=== PATIENT | female | born 1960 | race Caucasian/White ===

== ENCOUNTER → 2016-08-06 12:49 | Outpatient (CLI) | payer MEDICAID ==
[2015-03-31 10:29] VITALS: BMI 25.8
[~2016-08-06 12:49] MED LIST: AMITRIPTYLINE H50 MG PO; AUGMENTIN 875-11 TAB PO; CELEXA20 MG PO; CELEXA40 MG; FLAGYL500 MG PO; KEFLEX500 MG PO; LIBRIUM25 MG PO; NEURONTIN 300300 MG; NEURONTIN 300300 MG PO; PREDNISONE20 MG PO; VISTARIL25 MG; ZOCOR20 MG PO
== END | disposition home or self-care (01) ==
LOC: D.CT 12:49
DX: R16.0 Hepatomegaly, not elsewhere classified (principal); R93.5 Abnormal findings on diagnostic imaging of other abdominal regions, including retroperitoneum

== ENCOUNTER 2016-08-08 18:36 | Inpatient (IN) | payer MEDICAID ==
[~2016-08-08] VITALS: Ht 172.7 cm; Wt 102.7 kg
[~2016-08-08 18:36] MED LIST changes: -CELEXA40 MG; -FLAGYL500 MG PO; -LIBRIUM25 MG PO; -NEURONTIN 300300 MG; -VISTARIL25 MG
[2016-08-08 19:26] LABS: HEMATOCRIT 44.5 % (36.0-48.0); HEMOGLOBIN 15.5 g/dL (12-16); MCH 33.4 pg (26.0-34.0); MCHC 34.8 g/dL (31.0-37.0); MCV 95.9 fL (80.0-100.0); RBC 4.64 10x6/uL (4.00-5.40); RDW 15.6 % (11.5-14.5); WBC 28.7 10x3/uL (4.8-10.8)
[2016-08-08 19:27] LABS: MEAN PLATELET VOLUME 12.4 fL (7.4-10.4); PLATELET COUNT 207 10x3/uL (130-400)
[2016-08-08 19:39] LABS: ALBUMIN 2.5 g/dL (3.4-5.0); ANION GAP 26.2 mmol/L (8-16); BILIRUBIN - TOTAL 15.43 mg/dL (0.2-1.3); CALCIUM 9.4 mg/dL (8.5-10.1); CARBON DIOXIDE 21.4 mmol/L (21.0-32.0); CREATININE - SERUM 1.5 mg/dL (0.6-1.3); POTASSIUM - SERUM 5.6 mmol/L (3.5-5.1); PROTEIN - SERUM 6.3 g/dL (6.4-8.2)
[2016-08-08 19:53] LABS: BILIRUBIN - DIRECT 13.33 mg/dL (0.00-0.30)
[2016-08-08 19:55] LABS: EOSINOPHILS 2 % (0-7); LYMPHOCYTES 14 % (15-50); MONOCYTES 6 % (2-11); NEUTROPHILS 78 % (40-80); PLATELET ESTIMATE NORMAL
[2016-08-08 20:34] LABS: UDS - AMPHET NEGATIVE QUAL (NEGATIVE); UDS - BARB NEGATIVE QUAL (NEGATIVE); UDS - BENZO POSITIVE QUAL (NEGATIVE); UDS - COCAINE NEGATIVE QUAL (NEGATIVE); UDS - METH NEGATIVE QUAL (NEGATIVE); UDS - OPIATE NEGATIVE QUAL (NEGATIVE); UDS - PCP NEGATIVE QUAL (NEGATIVE); UDS - THC NEGATIVE QUAL (NEGATIVE)
[2016-08-08 20:35] LABS: APPEARANCE CLEAR (CLEAR); BILIRUBIN NEGATIVE (NEGATIVE); COLOR YELLOW (YELLOW); GLUCOSE NEGATIVE (NEGATIVE); KETONE NEGATIVE (NEGATIVE); LEUKOCYTE ESTERASE NEGATIVE (NEGATIVE); NITRITE NEGATIVE (NEGATIVE); PROTEIN NEGATIVE (NEGATIVE); UROBILINOGEN NORMAL (NORMAL)
[2016-08-09] VITALS (37 sets, daily range): BP systolic 71–142; BP diastolic 24–120; BMI 24.3
--- NOTE | 2016-08-09 08:47 | NUR ---
LETHARGIC. UNABLE TO COMMUNICATE WITH ME. NO ONE AVAILABLE TO ANSWER QUESTIONS. ICU ASSESSMENT REFLECTS THIS. ON RA. SATTING 97%. RR 24-28 LABORED BUT EVEN. RIGHT AC PIV. NO S/S OF INFILTRATION. BANANA BAG INFUSING AT 125 CC PER HOUR. LUNGS CTA BUT DIMINISHED. SEE FLOW SHEET. ABD SOFT. BS + X4 QUADS. ROGERS. FOLLOWS COMMANDS BUT IS CONFUSED. SEE FLOW SHEET FOR ADDITONAL ASSESSMENT.
--- NOTE | 2016-08-09 08:57 | NUR ---
ASSESSED IN ER FOR ICU. UNABLE TO ASSESS. VERY LETHARGIC. WILL NOT ANSWER QUESTIONS.
--- NOTE | 2016-08-09 08:57 | NUR ---
ASSESSMENT COMPLETED. REPORTED BACK TO TONEY CONLEY CHARGE NURSE AND HE ASSUMED CARE.
[2016-08-09 09:25] LABS: INR 2.72 (0.85-1.17); PROTIME 29.1 SECONDS (11.6-15.0)
[2016-08-09 09:37] LABS: % SATURATION 9 % (15-55); BASOPHILS 0.1 % (0.0-2.0); EOSINOPHILS 0 % (0-7); HEMATOCRIT 36.2 % (36.0-48.0); HEMOGLOBIN 12.3 g/dL (12-16); IMMATURE GRANULOCYTES 1.2 % (0-5); IRON 20 ug/dl (35-150); LYMPHOCYTES 8.3 % (15-50); MCV 97.1 fL (80.0-100.0); MEAN PLATELET VOLUME 11.8 fL (7.4-10.4); MONOCYTES 8.2 % (2-11); NEUTROPHILS 82.2 % (40-80); PLATELET COUNT 258 10x3/uL (130-400); RBC 3.73 10x6/uL (4.00-5.40); TOTAL IRON BIND CAPACITY 206 ug/dl (260-445); UNSAT IRON BIND CAPACITY 186 ug/dl (150-375); WBC 29.1 10x3/uL (4.8-10.8)
[2016-08-09 09:39] LABS: ALBUMIN 1.9 g/dL (3.4-5.0); ANION GAP 25.6 mmol/L (8-16); BILIRUBIN - TOTAL 11.9 mg/dL (0.2-1.3); C-REACTIVE PROTEIN 3.2 mg/dL (0.0-0.9); CALCIUM 8.3 mg/dL (8.5-10.1); CARBON DIOXIDE 18.4 mmol/L (21.0-32.0); CREATININE - SERUM 1.5 mg/dL (0.6-1.3); PROTEIN - SERUM 4.8 g/dL (6.4-8.2); TROPONIN-I 0.033 ng/mL (0.000-0.060)
--- NOTE | 2016-08-09 15:12 | NUR ---
REC'D PT - HYPOTESIVED - PAGEIleana ALEXANDER - STARTED LEVOFED TO TITRATE PER POLICY - USING 24 GA RIGHT HAND PIV FOR ACCESS. CPOC
--- NOTE | 2016-08-09 15:19 | NUR ---
PAGED DR. REYES HYPOTENSIVE
--- NOTE | 2016-08-09 15:49 | NUR ---
Patient Name: NISHANT GOOD Admission Status: ER Accout number: [id number] Admission Date: 08-08-2016 : 1960 Admission Diagnosis: Jaundice, Sepsis Attending: ERIC Current LOS: 1 Anticipated DC Date: 08-12-2016 Planned Disposition: Home Primary Insurance: MEDICAID [place] Discharge Planning Comments: Cm met with patient and spouse to complete initial discharge planning assessment. Patient not responding so spouse gave consent to complete assessment. Patient lives at home with spouse and has been independent in her care up until now. HE denied use of community resources or DME equipment. Unsure of dc plan at this time. Will depend upon on patient progress at time of discharge. She may require rehab. CM will continue to follow and assist with dc plan/needs. Health Counselor: Paige Dooley RN, [facility] [phone] Is the patient Alert and Oriented? No * How many steps to enter\exit or inside your home? 10 * PCP Dr. Rodriguez * Pharmacy [facility] * Preadmission Environment Home with Family * ADLs Independent * Equipment None * List name and contact numbers for known caregivers / representatives who currently or will assist patient after discharge: Russell - Spouse - [phone] * Community resources currently utilized None * Additional services required to return to the preadmission environment? Yes * Can the patient safely return to the preadmission environment? Yes * Has this patient been hospitalized within the prior 30 days at any hospital? No
--- NOTE | 2016-08-09 16:01 | NUR ---
PAGED DR. LANZA - INFOMRED OF NG TUBE AT INTERMINTTENT SUCTION - OUTPUT ~400 ML OF BLACK TARRY LIQUID - MD WILL COME TO UNIT TO ASSESS. J
[2016-08-09] MEDS ORDERED: NEURONTIN 300300 MG (16:09)
[2016-08-09] MEDS ORDERED: FLAGYL500 MG PO (16:10)
[2016-08-09] MEDS ORDERED: VISTARIL25 MG (16:11)
[2016-08-09] MEDS ORDERED: CELEXA40 MG (16:12)
[2016-08-09] MEDS ORDERED: LIBRIUM25 MG PO (16:13)
--- NOTE | 2016-08-09 16:49 | NUR ---
PAGED DR. MATHUR TO INFORM OF NEED TO ADJUST CENTRAL LINE PER XRAY
--- NOTE | 2016-08-09 17:07 | NUR ---
PAGED DR. MATHUR - RTN CALL - INFORMED OF NEED TO PULL BACK CENTRAL LINE - MD ASKED FOR A 20SILK STAIGHT NEEDLE AND HE WILL COME TO UNIT TO ADJUST CENTERAL LINE. PAGED TRAVEL ADMINISTRATOR - TO ASK TO OBTAIN FROM ER - AWAITING CALL BACK
--- NOTE | 2016-08-09 17:13 | NUR ---
ADVANCED NG TUBE 5CM PER NURSING MESSAGE - DAX ORDERED
--- NOTE | 2016-08-09 18:00 | NUR ---
DR. RODRIGUEZ ORADERED BANANA BAG TO RUN AT 75ML/HOUR, D10 BICARB AT 75ML. PT INCREASED HYPOTENIVE STATE - RT AT BEDSIDE TO ASSIST PT DECREASED RESPRIATIONS - BAGGING PT - DR. KEITA AVAILABLE INTUBATEDD TO PREVENT RESPIRATORY FAILURE CRASH CART AT BEDSIDE - MONTIOR TO CARDIAC PACER PADS 1829 - PT CONINTUES HYPOTESIVE AND IS MAXED ON BOTH VASOPRESSIN AND LEVOFED [address] REYES - ORDERED NEOEPHRINE TO TITRATE - ABG IN ONE HOUR AND TO CALL HIM WITH LAB RESULTS. 1929 REPORT GIVEN TO ONCOMING RN 1899 XRAY ORDERD FOR OET PLACEMENT - ASKED X-RAY TECH TO ASK RADILOGIST TO VERIFY CMs TO WITHDRAW CENTRAL LINE - AWAITING RESULTS.
--- NOTE | 2016-08-09 19:00 | NUR ---
1900: Pt SBP variable 30-80 with continous BP monitorring. Pt remains on Levophed at 30 mcg/kg/min and Vasopressin 0.04 units/hr. Neosynephrine gtt started at this time at 20 mcg/min. Pt remains with D10W, D5W with NAHCO3-, Diprivan is off (BP related). CVP monitoring established at this time and transduced to CM via distal CVL line with measurement 9-10 with proper wf. FFP started with NS and blood tubing as per hosptial policy. Pt remains on Vent with RR 26x with SPO2 99%.
[2016-08-09 19:22] LABS: BASOPHILS 0.3 % (0.0-2.0); EOSINOPHILS 0.1 % (0-7); HEMATOCRIT 32.1 % (36.0-48.0); HEMOGLOBIN 10.3 g/dL (12-16); IMMATURE GRANULOCYTES 3.1 % (0-5); LYMPHOCYTES 10.4 % (15-50); MCH 32.7 pg (26.0-34.0); MCHC 32.1 g/dL (31.0-37.0); MCV 101.9 fL (80.0-100.0); MEAN PLATELET VOLUME 12.8 fL (7.4-10.4); MONOCYTES 9.3 % (2-11); NEUTROPHILS 76.8 % (40-80); PLATELET COUNT 200 10x3/uL (130-400); RBC 3.15 10x6/uL (4.00-5.40); RDW 16.4 % (11.5-14.5); WBC 36.8 10x3/uL (4.8-10.8)
[2016-08-09 19:45] LABS: ALBUMIN 1.6 g/dL (3.4-5.0); BILIRUBIN - TOTAL 12.06 mg/dL (0.2-1.3); CALCIUM 8.6 mg/dL (8.5-10.1); PROTEIN - SERUM 3.9 g/dL (6.4-8.2)
[2016-08-09 19:54] LABS: ANION GAP 34.1 mmol/L (8-16); CARBON DIOXIDE 8.4 mmol/L (21.0-32.0); POTASSIUM - SERUM 6.5 mmol/L (3.5-5.1)
--- NOTE | 2016-08-09 20:00 | NUR ---
2000: Pt NGT position confirmed with 30 cc air bolus and auscultation. Returned to LIS with dark maroon liquid contents observed. Kaexylate (previous order/enema) admin rectally at this time via rectal tube. Clamped for 30 minutes and returned to gravity flow. Immediate return of approx 500cc of dark/black liquid stool returned. Rectal tube remains and placed to gravity drainage.
--- NOTE | 2016-08-09 21:00 | NUR ---
2100: Update called to Dr. Morales and new orders rec'd and placed in [facility].
--- NOTE | 2016-08-09 22:00 | NUR ---
2200: Dr. Carrillo here at bedside. CVL adjusted and sutured by . Replaced CVL Dressing under sterile technique and Biopatch applied.
--- NOTE | 2016-08-09 23:00 | NUR ---
2300: Update called to Dr. Morales at this time. New orders rec'd and placed in [facility] at this time.
[2016-08-10] VITALS (90 sets, daily range): BP systolic 89–138; BP diastolic 46–96
--- NOTE | 2016-08-10 | NUR ---
0000: Serum lab values called to Dr. Morales and new orders rec'd and placed in [facility].
--- NOTE | 2016-08-10 | NUR ---
0000: Continue to titrate multiple gtts as per MD orders to keep SBP >90 and MAP >65. Pt remains on Vent with OC93-45b with SPO2 99%. Pt UOP <30 cc/hr. MD notified and aware. Albumin given as per orders. Richter patency confirmed and remains draining to gravity drain with kinks or blockages detected.
[2016-08-10 00:10] LABS: HEMOGLOBIN 8.4 g/dL (12-16)
[2016-08-10 00:18] LABS: HEMATOCRIT 25.5 % (36.0-48.0)
--- NOTE | 2016-08-10 02:00 | NUR ---
0200: 4 FFP and 2 PRBC (7p-7a) admin via BT and NS through CVL completed at this time.
--- NOTE | 2016-08-10 03:00 | NUR ---
0300: Continue to titrate Levophed gtt to keep SBP 90. PRBC continue to infuse with BT and NS.
--- NOTE | 2016-08-10 05:00 | NUR ---
0500: Levophed gtt off at this time. Davonte remains off. Pt SBP 120's and HR 90-100bpm. Vasopressin gtt remains on at this time.
[2016-08-10 05:08] LABS: BASOPHILS 0.4 % (0.0-2.0); EOSINOPHILS 0 % (0-7); HEMATOCRIT 26.6 % (36.0-48.0); HEMOGLOBIN 8.9 g/dL (12-16); IMMATURE GRANULOCYTES 1.6 % (0-5); LYMPHOCYTES 16.5 % (15-50); MCH 32.2 pg (26.0-34.0); MCHC 33.5 g/dL (31.0-37.0); MCV 96.4 fL (80.0-100.0); MEAN PLATELET VOLUME 12.7 fL (7.4-10.4); MONOCYTES 6.9 % (2-11); NEUTROPHILS 74.6 % (40-80); PLATELET COUNT 138 10x3/uL (130-400); RBC 2.76 10x6/uL (4.00-5.40); RDW 15.1 % (11.5-14.5); WBC 25.2 10x3/uL (4.8-10.8)
[2016-08-10 05:35] LABS: BILIRUBIN - TOTAL 12.32 mg/dL (0.2-1.3); CALCIUM 7.9 mg/dL (8.5-10.1); CREATININE - SERUM 2.3 mg/dL (0.6-1.3); MAGNESIUM - SERUM 3.3 mg/dL (1.8-2.4); PHOSPHOROUS 5.4 mg/dL (2.5-4.9); THYROID STIMULATING HORMONE 0.47 uIU/mL (0.36-3.74)
[2016-08-10 05:36] LABS: APTT 57.2 SECONDS (22.8-39.4); INR 2.68 (0.85-1.17); PROTIME 28.7 SECONDS (11.6-15.0)
[2016-08-10 05:38] LABS: ALBUMIN 2.8 g/dL (3.4-5.0); ANION GAP 27.5 mmol/L (8-16); CARBON DIOXIDE 19.9 mmol/L (21.0-32.0); POTASSIUM - SERUM 4.4 mmol/L (3.5-5.1)
[2016-08-10 06:28] LABS: APPEARANCE TURBID (CLEAR); COLOR YELLOW (YELLOW)
[2016-08-10 06:29] LABS: BILIRUBIN NEGATIVE (NEGATIVE); GLUCOSE NEGATIVE (NEGATIVE); KETONE NEGATIVE (NEGATIVE); LEUKOCYTE ESTERASE NEGATIVE (NEGATIVE); NITRITE NEGATIVE (NEGATIVE); PROTEIN NEGATIVE (NEGATIVE); SPECIFIC GRAVITY 1.015 (1.005-1.020); UROBILINOGEN NORMAL (NORMAL)
[2016-08-10 06:30] LABS: AMORPHOUS SEDIMENT >1+ /lpf (NONE SEEN); BACTERIA MODERATE /hpf (NONE SEEN); EPITHELIAL CELLS 0-5 /hpf (0-5); GRANULAR CAST 0-5 /lpf (NONE SEEN); MUCUS <1+ /lpf (NONE SEEN); RED CELLS - URINE OCC /hpf (0-5); WHITE CELLS - URINE OCC /hpf (0-5)
--- NOTE | 2016-08-10 07:00 | NUR ---
0700: Pt remains on vent with RR20x with SPO2 97%. Pt remains with SBP 120's with Levophed and Davonte off. Vasopressin remains unchanged. Pt continues with black liquid drainage from NGT and Rectal tube. Richter remains patent with UOP <30 cc/hr approx 10cc/hr of cloudy yellow UOP. Pt remains SR on CM 90's at this time.
--- NOTE | 2016-08-10 07:51 | NUR ---
[id number]
[2016-08-10 10:26] LABS: HEMATOCRIT 26.2 % (36.0-48.0); HEMOGLOBIN 8.9 g/dL (12-16)
[2016-08-10 14:06] LABS: ERYTHROCYTE SEDIMENTATION RATE 12 mm/hr (0-30)
[2016-08-10 14:20] LABS: CREATININE - URINE 49.9 mg/dL (30-125); PRO/CRE RATIO URINE 2.2 mg/g; PROTEIN - URINE 111.2 mg/dL (0.0-11.9)
[2016-08-10 14:25] LABS: APPEARANCE HAZY (CLEAR); COLOR DK YELLOW (YELLOW); LEUKOCYTE ESTERASE NEGATIVE (NEGATIVE); NITRITE NEGATIVE (NEGATIVE); PROTEIN 1+ mg/dL (NEGATIVE); SPECIFIC GRAVITY 1.015 (1.005-1.020)
[2016-08-10 14:26] LABS: AMORPHOUS SEDIMENT >1+ /lpf (NONE SEEN); BACTERIA MODERATE /hpf (NONE SEEN); BILIRUBIN NEGATIVE (NEGATIVE); EPITHELIAL CELLS 0-5 /hpf (0-5); GLUCOSE 50 mg/dL (NEGATIVE); GRANULAR CAST 0-5 /lpf (NONE SEEN); KETONE NEGATIVE (NEGATIVE); MUCUS <1+ /lpf (NONE SEEN); RED CELLS - URINE OCC /hpf (0-5); UROBILINOGEN NORMAL (NORMAL); WHITE CELLS - URINE RARE /hpf (0-5)
[2016-08-10 17:31] LABS: HEMATOCRIT 24.2 % (36.0-48.0); HEMOGLOBIN 8.2 g/dL (12-16)
--- NOTE | 2016-08-10 21:00 | NUR ---
REPORT RECEIVED AND CARE ASSUMED. PT RESPIRATORY STATUS BEING MAINTAINED PER VENTILATOR. PT IS IN CONTACT ISOLATION, PRECAUTIONS OBSERVED. IVF PER PUMPS AND ARE DATED AND LABELED APPROPRIATELY AND ARE CURRENT. PT BEING MONITORED PER STANDARD ICU PROTOCOL WITH ALL ALARMS SET. IVF LISTED ON FLOWSHEET. TITRATING DIPROVAN AND VASSOPRESSIN ORDERED. ALL CHANGES RECORDED ON FLOWSHEET. PT IS TOTAL CARE WITH PILLOWS USED TO PROVIDE SUPPORT AND RELIEVE PRESSURE. HEELS ARE BRIDGED. NOTE A SCAB/SORE TO RIGHT FOREARM-OLD IN APPEARANCE. PT WITH BILATERAL WRIST RESTRAINTS ON TO PREVENT PT FROM PULLING ETT OR OTHER LINES. NOTE PIV TO LEFT AC AND RIGHT HAND. EACH FLUSHES WELL AND ARE WNL. ALL IVF ARE INFUSING PER RIGHT SC CVL VIA MANIFOLD. CVP PER DISTAL PORT, LEVELED AND ZEROED AND READING AT 16. THIS IS WHAT WAS REPORTED AND IS NOT A CHANGE IN PT'S STATUS PER REPORTING OFF RN.
--- NOTE | 2016-08-10 21:42 | NUR ---
0710-RECIEVED PER FLOW SHEET--NOTED MARKED JAUNDICE TO SCLERA-NON RESPONSIVE TO TACTILE STIMULI-DIPRIVAN DECREASED TO 10MCG/KG/MIN BLOOD BANK NOTIFIED OF FFP ORDER -DR REYES AT [facility]-ORDERS RECIEVED AND NOTED -RENAL NURSE PRACTITIONER IN UNIT AND NOTIFIED OF CONSULT 0830-DR TOWNSEND AT BEDSIDE STATUS REPORT GIVEN-ORDERS RECIEVED 0900- AT BEDSIDE-QUESTIONS ANSWERED TO BEST OF ABILITY- 1030-STOOL CDT SENT ORDERED 1230-DR REYES NOTIFIED OF CDT POSITIVE RESULT-PT PLACED IN [id number] RECIEVED AND NOTED 1530- AT [facility]-INFORMED OF CDT FINDING IN PEGAL-[id number] COURSE OF TREATMENT-STRICT CONTACT ISOLATION-INFORMED OF CLEANING HOME -LAUNDERING AND LYSOL SPRAY ALL SOFT SURFACES IN HOME AND CAR- APPEARS TO UNDERSSTAND 1630-NO CHANGES-VASOPRESSIN TITRATED FOR SYS >90 1730-NO CHANGES NOTED 1999- SR ON MONITOR NOTED DOLORES INCREASE TO 2-ORAL CARE DONE
--- NOTE | 2016-08-10 22:00 | NUR ---
NOTE PT'S RINGS ARE VERY TIGHT DUE TO GENERALIZED EDEMA. LUBIRCANT APPLIED AND WITH SOME DIFFICULTY WERE REMOVED. 3 RINGS PLACED IN SMALL BAG WITH PT'S NAME AND ADMISSIONS CALLED TO PLACE IN [facility].
[2016-08-10 22:55] LABS: HEMATOCRIT 23.8 % (36.0-48.0); HEMOGLOBIN 8.1 g/dL (12-16)
--- NOTE | 2016-08-10 23:00 | NUR ---
SHIFT REASSESSMENT COMPLETED SEE FLOWSHEET. CONTINUE TO CHECK FSBS Q1H PER ORDER. SEE FLOWSHEET FOR DOCUMENTATION.
[2016-08-11] VITALS (78 sets, daily range): BP systolic 73–97; BP diastolic 36–57; Ht 172.7 cm; Wt 102.7 kg
--- NOTE | 2016-08-11 01:00 | NUR ---
PT CONTINUES ON VASSOPRESSIN WITH NO CHANGES. SBP JUST ABOVE 90. SEE FLOWSHEET FOR VS. CONTINUE TO TURN AND REPOSITION Q2H WITH ALL ADL'S PROVIDED FOR
--- NOTE | 2016-08-11 03:00 | NUR ---
SHIFT REASSESSMENT COMPLETED. SEE FLOWSHEET. NO SIGNIFICANT CHANGES
--- NOTE | 2016-08-11 03:30 | NUR ---
RADIOLOGY AT BEDSIDE FOR PCXR
--- NOTE | 2016-08-11 05:00 | NUR ---
LABS DRAWN FROM DISTAL PORT OF CVL AND SENT FOR ANALYSIS. PT OPENING EYES BUT NO FOLLOWING COMMANDS. TOLERATING VENT WELL
[2016-08-11 05:33] LABS: BASOPHILS 0.1 % (0.0-2.0); EOSINOPHILS 0 % (0-7); HEMATOCRIT 24.2 % (36.0-48.0); HEMOGLOBIN 8.2 g/dL (12-16); IMMATURE GRANULOCYTES 1.2 % (0-5); LYMPHOCYTES 14.7 % (15-50); MCH 32.2 pg (26.0-34.0); MCHC 33.9 g/dL (31.0-37.0); MCV 94.9 fL (80.0-100.0); MEAN PLATELET VOLUME 13.1 fL (7.4-10.4); MONOCYTES 7.7 % (2-11); NEUTROPHILS 76.3 % (40-80); PLATELET COUNT 95 10x3/uL (130-400); RBC 2.55 10x6/uL (4.00-5.40); RDW 16.8 % (11.5-14.5); WBC 23.9 10x3/uL (4.8-10.8)
[2016-08-11 05:45] LABS: INR 2.15 (0.85-1.17)
[2016-08-11 06:09] LABS: ALBUMIN 2.5 g/dL (3.4-5.0); ALKALINE PHOSPHATASE 242 U/L (46-116); ALT (SGPT) 727 U/L (10-68); BILIRUBIN - TOTAL 14.02 mg/dL (0.2-1.3); C-REACTIVE PROTEIN 5.8 mg/dL (0.0-0.9); CALC OSMOLALITY 331 mosm/kg (275-300); CALCIUM 7.7 mg/dL (8.5-10.1); CARBON DIOXIDE 22.8 mmol/L (21.0-32.0); CHLORIDE - SERUM 107 mmol/L (98-107); CREATINE KINASE 598 UL (21-215); GLUCOSE 117 mg/dL (74-106); PHOSPHOROUS 5.1 mg/dL (2.5-4.9); PRO BNP 11325 pg/mL (0-125); PROTEIN - SERUM 4.8 g/dL (6.4-8.2); SODIUM 150 mmol/L (136-145); UREA NITROGEN 104 mg/dL (7-18)
[2016-08-11 06:14] LABS: AMYLASE - SERUM 287 U/L (25-115); CREATININE - SERUM 2.9 mg/dL (0.6-1.3); LIPASE 3116 U/L (73-393); MAGNESIUM - SERUM 3.5 mg/dL (1.8-2.4); eGFR NON AFRICAN AMERICAN 18 mL/min (90-120)
[2016-08-11 06:16] LABS: CKMB 1.4 U/L (0.0-3.6)
--- NOTE | 2016-08-11 08:00 | NUR ---
0800- REC'D PT SEDATED AND VENTILATED. PT ASSESSMENT COMPLETE. SEE FLOWSHEET. WILL CONTINUE TO MONITOR. 1030- PT FSBS Q1 DC'D PER VERBAL ORDER FROM DR FERREIRA. 1230- PT SPOUSE AT BEDSIDE. UPDATE PROVIDED AND QUESTIONS ANSWERED. 1400- REPORT GIVEN TO CECILIO JACK RN.
--- NOTE | 2016-08-11 14:09 | NUR ---
1400 CARE ASSUMED OF PT AT THIS TIME PT REMAINS [id number] ON VENTIL;ATOR WITH VASOPRESSIN INFUSING FOR BP... THERE IS A UNIT OF PRBC INFUSING..RECTAL BAG IN PLACE WITH LIQUID STOOL .. SOFT WRIST RESTRAINTS ARE ON 1410 DR BERNAL CALLED AND ORDERS RECIEVED FOR BP MANAGEMENT..
--- NOTE | 2016-08-11 14:41 | NUR ---
1430 BS 123. 1440 ECHO CARDIOGRAM IN PROGRESS AT BEDSIDE..
--- NOTE | 2016-08-11 17:35 | NUR ---
1500 WITHOUT VISITORSD.. 1600 COMPLETE BATH AND LINEN CHANGE DONE.. AIR OVERLAY MATTRESS ADDED TO THE BED PER ORDER WOUND CARE.. 1700 I AND O COMPLETE.. MEDS GIVEN AND LEVOPHED DRIP INITIATED PER ORDER AND VASOPRESSIN DRIP DCd.. NS HUNG AT 125/HR AND NS BOLUS INFUSING..
--- NOTE | 2016-08-11 19:15 | NUR ---
REPORT RECEIVED AND CARE ASSUMED. INITIAL SHIFT ASSESSMENT STARTED. PT BEING MONITORED PER STANDARD ICU MONITORING WITH ALL ALARMS SET AND VERIFIED. NOTE B/P IS WELL BELOW PARIMETERS. TITRATING LEVOPHED AT INCREASES OF 1MCG Q5MIN UNTIL CORRECTED. STARTING AT THE INFUSING 5MCG/KG/MIN. PT BEING SUPPORTED VIA VENTILATOR AND DOES REQUIRE TOTAL CARE. ALL LINES AND IVF CHECKED FOR CURRENT DATES AND LABELS AND ARE APPROPRIATE.
--- NOTE | 2016-08-11 21:00 | NUR ---
NO VISITORS AT THIS TIME. CURRENTLY AT 19 MCG/KG/MIN OF LEVOPHED
--- NOTE | 2016-08-11 23:00 | NUR ---
SHIFT REASSESSMENT COMPLETED. SEE FLOWSHEET. CONTINUE TO TITRATE UP ON THE LEVOPHED. NOW AT 23MCG. SB/P IS NOW JUST ABOVE 90'S. WILL CONTINUE TO MAKE ADJUSTMENTS NEEDED.
[2016-08-12] VITALS (94 sets, daily range): BP systolic 77–103; BP diastolic 42–59
--- NOTE | 2016-08-12 01:15 | NUR ---
RECTAL TUBE LEAKING AFTER ADMINISTRATION OF LACTULOSE ENEMA. PT CLEANED AND PARTIAL LINEN CHANGE DONE. NOTICE THE PERIANAL AREA RED AND IRRITATED IN APPEARANCE. CLEANED GENTLY AND BUTT PASTE APPLIED. PT REMAINS ON 23MCG OF LEVOPHED AND VSS ON THIS DOSE FOR THE LAST 2 HOURS.
--- NOTE | 2016-08-12 03:00 | NUR ---
HAVE NEEDED TO TITRATE UP ON THE LEVOPHED 1MCG/MIN Q 5 MIN TO ATTAIN ADEQUATE SBP. NOW AT 27MCG/KG/MIN, DECREASING DIPROVAN TO 5MCG/KG/MIN. SHIFT REASSESSEMENT COMPLETED AT THIS TIME. NO OTHER SIGNIFICANT CHANGES. NO FURTHER LEAKAGE OF RECTAL TUBE.
--- NOTE | 2016-08-12 04:45 | NUR ---
LAB DRAWN FROM DISTAL PORT OF CVL AND SENT FOR ANALYSIS. PT RESTING QUIETLY. TOLERATING THE DECREASE IN DIPROVAN WELL. CONTINUES WITH 27MCG OF LEVOPHED AND MAINTAINING SBP >90
[2016-08-12 04:55] LABS: BASOPHILS 0.4 % (0.0-2.0); EOSINOPHILS 0.1 % (0-7); HEMATOCRIT 29.7 % (36.0-48.0); HEMOGLOBIN 10.1 g/dL (12-16); LYMPHOCYTES 11.9 % (15-50); MCH 31.3 pg (26.0-34.0); MEAN PLATELET VOLUME 13.1 fL (7.4-10.4); MONOCYTES 9.1 % (2-11); NEUTROPHILS 73.5 % (40-80); PLATELET COUNT 113 10x3/uL (130-400); RBC 3.23 10x6/uL (4.00-5.40); RDW 16.5 % (11.5-14.5); WBC 33.4 10x3/uL (4.8-10.8)
[2016-08-12 04:57] LABS: APTT 60.6 SECONDS (22.8-39.4); INR 1.83 (0.85-1.17); PROTIME 21.1 SECONDS (11.6-15.0)
[2016-08-12 05:11] LABS: D-DIMER-QUANTITATIVE 7.91 ug/mLFEU (0.20-0.54)
[2016-08-12 05:42] LABS: PHOSPHOROUS 5.2 mg/dL (2.5-4.9)
[2016-08-12 05:49] LABS: MAGNESIUM - SERUM 4.3 mg/dL (1.8-2.4)
--- NOTE | 2016-08-12 14:03 | NUR ---
0800 AM ASSESMENT IS COMPLETE SEE FLOW SHEET FOR FINDINGS,, PT REMAINS ORALLY INTUBATED AND SEDATED ON THE VENT LEVOPHEDE INFUSING TO SUPPORT BP.. DR FERREIRA IN TO SEE PT UPDATE GIVEN 0900 WITHOUT VISITORS 1100 WITHOUT CHANGES 1200 NO VISITORS AT THIS TIME.. DR BERNAL IN TO SEE PT AND ORDER FOR VASOPRESSIN TO BE HUNG ALONG WITH THE LEVOPHED FOR BP CONTROL RECIEVED.. CVP IS 9. NGT IS REPOSITIONED AND MEDS GIVEN VIA TUBE. 1300 BP IS IMPROVED SINCE ADDING VASOPRESSIN 1400 WIHTOUT OTHER CHNAGES..
--- NOTE | 2016-08-12 17:46 | NUR ---
1500 WITHOUT [id number] AT THIS TIME.. 1700 DR AJ IN TO SEE PT.. 1730 I AND O DONE..
[2016-08-12 18:09] LABS: SPE - A/G RATIO 1.5 (0.7-1.7); SPE - ALBUMIN 2.8 g/dL (2.9-4.4); SPE - ALPHA-1 GLOBULIN 0.2 g/dL (0.0-0.4); SPE - ALPHA-2 GLOBULIN 0.4 g/dL (0.4-1.0); SPE - BETA GLOBULIN 0.7 g/dL (0.7-1.3); SPE - GAMMA GLOBULIN 0.6 g/dL (0.4-1.8); SPE - M-SPIKE Not Observed g/dL (Not Observed); SPE - TOTAL PROTEIN 4.7 g/dL (6.0-8.5)
--- NOTE | 2016-08-12 19:30 | NUR ---
REPORT RECEIVED AND CARE ASSUMED. INITIAL SHIFT ASSESSMENT COMPLETED. PT CONTINUES TO BE ON VENTILATOR FOR RESPIRATORY SUPPORT AND IS CURRENTLY ON BOTH VASSOPRESSIN AND LEVOPHED TO SUSTAIN B/P. ALL LINES AND IVF VERIFIED TO BE CURRENT ALL ARE PROPERLY DATED AND LABELED. IVF PER PUMP. PT BEING MONITORED PER STANDARD ICU PROTOCOL WITH ALL ALARMS VERIFIED AND SET. CVP LEVELED AND ZEROED. PT IS TOTAL CARE FOR AL ADLS' ARMS ARE ELEVATED ON PILLOWS AND HEELS ARE BRIDGED. PT IS ON AIROVERLAY MATTRESS AND PILLOWS ARE BEING USED TO PROVIDE SUPPORT AND RELIEVE PRESSURE. CURRENTLY ON 5MCG DIPROVAN FOR SEDATION.
--- NOTE | 2016-08-12 19:30 | NUR ---
1800 IN TO SEE PT AND UPDATE IS GIVEN.. 1830 DR MARIE IN TO SEE PT..
--- NOTE | 2016-08-12 20:15 | NUR ---
SPOKE WITH DR. BERNAL TO NOTIFY OF TEMP 101.4, B/P 88/47, CVP 19, MAX DOSE OF VASOPRESSIN 0.04, 28MCG OF LEVOPHED, NS AT 150. ALSO NOTIFED HIM OF NEW CHANGES IN MED ORDERS, D/C OF LACTULOSE AND LEVAQUIN. RECEIVED ORDERS TO CALL DR. AJ AND NOTIFY HER OF THE MED AND TEMPERATURE FINDINGS. ORDERS TO START DOPAMINE WITH MAX DOSE OF 50MCG IF MAX DOSE OF LEVOPHED AND DOPAMINE INEFFECTIVE TO MAINTAIN SBP>90. NO OTHER NEW ORDERS.
--- NOTE | 2016-08-12 20:20 | NUR ---
SPOKE WITH DR. AJ TO NOTIFY OF CHANGES IN MEDICATIONS, TEMP AND LAST BC ON 08/08/[address] AJ EXPRESSED AGREEMENT WITH ORDERS TO D/C LACTULOSE AND LEVAQUIN. ORDERS RECEIVED TO INCREASE ORAL VANC DOSE TO 500MG MAINTAINING A Q6H FREQUENCY AND REPEAT BLOOD CULTURES X 2. NOTIFIED HER WE WOULD BE STARTING DOPAMINE IF CURRENT MEDCATION TITRATIONS PROVED INEFFECTIVE. NO OTHER NEW ORDERS. ORDERS PUT IN THE COMPUTER AND VERIFIED
--- NOTE | 2016-08-12 21:00 | NUR ---
DOPAMINE STARTED PER ORDER TO START IF MAX DOSES OF LEVOPHED AND VASOPRESSIN INNEFFECTIVE.
--- NOTE | 2016-08-12 22:34 | NUR ---
BUILDER BEAM AT BEDSIDE DOING CULTURES
--- NOTE | 2016-08-12 23:00 | NUR ---
SHIFT REASSESSMENT COMPLETED SEE FLOWSHEET. CONTINUE TO PROVIDE TOTAL CARE
[2016-08-13] VITALS (96 sets, daily range): BP systolic 64–136; BP diastolic 36–66
--- NOTE | 2016-08-13 01:00 | NUR ---
NO SIGNIFICANT CHANGES. REMAINS FEBRILE, TITRATING MEDS DOCUMENTED ON FLOWSHEET
--- NOTE | 2016-08-13 03:00 | NUR ---
SHIFT REASSESSMENT COMPLETED. PT TOLERATING WEANING OF DOPAMINE. HR NOW REMAINING <100.
--- NOTE | 2016-08-13 03:45 | NUR ---
B/P DROPPED. INCREASED DOPAMINE BACK TO 2MCG. RT AT BEDSIDE FOR ABGS, PT HAS HAD AM CXR AND MORNING BATH. ALL LINENS CHANGED.
--- NOTE | 2016-08-13 04:00 | NUR ---
CVL DRESSING REMOVED. LINE DISLODGED. PIV STARTED TO LEFT FOREARM AND RIGHT FOREARM BOTH 22G. 4 ATTEMPTS WERE MADE. IVF RECONNECTED AND B/P IMMEDIATELY REBOUNDED.
[2016-08-13 05:04] LABS: BASOPHILS 0.3 % (0.0-2.0); EOSINOPHILS 0 % (0-7); HEMATOCRIT 27.2 % (36.0-48.0); HEMOGLOBIN 9.3 g/dL (12-16); IMMATURE GRANULOCYTES 3.2 % (0-5); LYMPHOCYTES 10.4 % (15-50); MCH 31.8 pg (26.0-34.0); MCHC 34.2 g/dL (31.0-37.0); MCV 93.2 fL (80.0-100.0); MEAN PLATELET VOLUME 13.3 fL (7.4-10.4); MONOCYTES 10.4 % (2-11); NEUTROPHILS 75.7 % (40-80); PLATELET COUNT 120 10x3/uL (130-400); RBC 2.92 10x6/uL (4.00-5.40); WBC 28.2 10x3/uL (4.8-10.8)
[2016-08-13 05:09] LABS: INR 2.1 (0.85-1.17); PROTIME 23.6 SECONDS (11.6-15.0)
[2016-08-13 05:14] LABS: APTT 88.6 SECONDS (22.8-39.4)
[2016-08-13 06:55] LABS: ALBUMIN 2.6 g/dL (3.4-5.0); ANION GAP 24.6 mmol/L (8-16); BILIRUBIN - TOTAL 16.3 mg/dL (0.2-1.3); CARBON DIOXIDE 20.5 mmol/L (21.0-32.0); PHOSPHOROUS 6.4 mg/dL (2.5-4.9); POTASSIUM - SERUM 4.1 mmol/L (3.5-5.1); PROTEIN - SERUM 4.5 g/dL (6.4-8.2); VANCOMYCIN - RANDOM 28.7 ug/mL (10.0-20.0)
[2016-08-13 06:57] LABS: CREATININE - SERUM 4.4 mg/dL (0.6-1.3)
[2016-08-13 06:58] LABS: CALCIUM 6.9 mg/dL (8.5-10.1); MAGNESIUM - SERUM 3.5 mg/dL (1.8-2.4)
--- NOTE | 2016-08-13 07:00 | NUR ---
REPORT RECEIVED. ASSESSMENT COMPLETED. PATIENT IN SEMIFOWLERS POSITION WITH EYES CLOSED. NO VISUAL CUES OF DISTRESS NOTED.
[2016-08-13 09:13] LABS: PRO/CRE RATIO URINE 2.5 mg/g; PROTEIN - URINE 137.6 mg/dL (0.0-11.9)
[2016-08-13 09:30] LABS: APPEARANCE CLOUDY (CLEAR); BILIRUBIN NEGATIVE (NEGATIVE); COLOR DK YELLOW (YELLOW); GLUCOSE NEGATIVE (NEGATIVE); KETONE NEGATIVE (NEGATIVE); LEUKOCYTE ESTERASE TRACE (NEGATIVE); NITRITE NEGATIVE (NEGATIVE); PROTEIN 1+ mg/dL (NEGATIVE); SPECIFIC GRAVITY 1.015 (1.005-1.020); UROBILINOGEN NORMAL (NORMAL)
--- NOTE | 2016-08-13 09:30 | NUR ---
NO VISIORS NOTED THIS VISITING HOUR.
[2016-08-13 09:31] LABS: AMORPHOUS SEDIMENT >1+ /lpf (NONE SEEN); BACTERIA MODERATE /hpf (NONE SEEN); EPITHELIAL CELLS 0-5 /hpf (0-5); GRANULAR CAST OCC /lpf (NONE SEEN); MUCUS <1+ /lpf (NONE SEEN); RED CELLS - URINE 0-5 /hpf (0-5); WHITE CELLS - URINE 0-5 /hpf (0-5)
--- NOTE | 2016-08-13 10:07 | NUR ---
NUTRITION MONITORING & EVAL CHART REVIEWED. PT REMAINS ON VENT, ISOLATION. IF TUBE FEEDS AN OPTION, RECOMMEND SUPLENA WITH INITIAL GOAL RATE 40 CC/HR. RD FOLLOWING
--- NOTE | 2016-08-13 11:20 | NUR ---
RECTAL TUBE FLUSHED TO ENSURE PATENTCY. PATIENT REPOSITIONED FOR COMFORT. ORAL CARE COMPLETED.
--- NOTE | 2016-08-13 12:09 | NUR ---
CALL PLACED TO PATIENTS SPOUSE TO TRY TO GET PHONE CONSENT FOR CENTRAL LINE. MESSAGE LEFT.
--- NOTE | 2016-08-13 12:30 | NUR ---
NO VISITORS NOTED THESE VISITING HOUR.
--- NOTE | 2016-08-13 13:35 | NUR ---
REMOVED A SINGLE SUTURE FROM PATIENTS RIGHT NECK WERE IJ WAS. NO BLEEDING OR DRAINING NOTED.
--- NOTE | 2016-08-13 16:52 | NUR ---
CALL PLACED TO PATIENTS SO THAT HE CAN TALK WITH DR BERNAL PER HIS REQUEST. DR BERNAL ANSWERED ALL QUESTIONS.
--- NOTE | 2016-08-13 18:06 | NUR ---
ASSISTED DR MATHUR IN PLACING RIGHT EXTERNAL JUGULAR. WILL WAIT ON XRAY TO BE DONE.
--- NOTE | 2016-08-13 19:30 | NUR ---
DOPAMINE BEING INCREASED PER PROTOCOL FOR SBP<90.
--- NOTE | 2016-08-13 21:00 | NUR ---
SPOUSE HERE TO VISIT. UPDATE GIVEN
--- NOTE | 2016-08-13 21:00 | NUR ---
DOPAMINE NOW AT 35MCG. SBP>90 TITRATING DOWN PER PROTOCOL.
[2016-08-13 21:08] LABS: UPE RAND - ALBUMIN 41.1 % (()); UPE RAND - ALPHA 1 GLOBULIN 2.5 % (()); UPE RAND - ALPHA 2 GLOBULIN 10.8 % (()); UPE RAND - BETA GLOBULIN 25.7 % (()); UPE RAND - GAMMA GLOBULIN 19.9 % (())
--- NOTE | 2016-08-13 21:45 | NUR ---
DOPAMINE AT 5CG WITH SBP WITHIN DEFINED PERIMETERS
--- NOTE | 2016-08-13 23:00 | NUR ---
SHIFT REASSESSMENT COMPLETED. PT NOTED TO CONTINUE TO HAVE OOZING AT RIGHT IJ SITE. PRESSURE DRESSING APPLIED.
[2016-08-14] VITALS (96 sets, daily range): BP systolic 84–114; BP diastolic 21–515
--- NOTE | 2016-08-14 03:33 | NUR ---
RADIOLOGY AT BEDSIDE FOR AM CXR.
[2016-08-14 04:04] LABS: BASOPHILS 0.2 % (0.0-2.0); EOSINOPHILS 0.1 % (0-7); HEMATOCRIT 23.7 % (36.0-48.0); HEMOGLOBIN 8.1 g/dL (12-16); IMMATURE GRANULOCYTES 2.1 % (0-5); LYMPHOCYTES 9.6 % (15-50); MCH 31.4 pg (26.0-34.0); MCHC 34.2 g/dL (31.0-37.0); MCV 91.9 fL (80.0-100.0); MEAN PLATELET VOLUME 12.4 fL (7.4-10.4); MONOCYTES 9.7 % (2-11); NEUTROPHILS 78.3 % (40-80); PLATELET COUNT 111 10x3/uL (130-400); RBC 2.58 10x6/uL (4.00-5.40); RDW 17.1 % (11.5-14.5)
--- NOTE | 2016-08-14 04:13 | NUR ---
LABS REVIEWED. NO FURTHER BLEEDING AT THIS TIME. PRESSURE DRESSING REMAINS CDI
[2016-08-14 04:44] LABS: ALBUMIN 2.9 g/dL (3.4-5.0); ANION GAP 27.9 mmol/L (8-16); BILIRUBIN - TOTAL 18.63 mg/dL (0.2-1.3); CARBON DIOXIDE 18.7 mmol/L (21.0-32.0); CREATININE - SERUM 5.1 mg/dL (0.6-1.3); PHOSPHOROUS 6.9 mg/dL (2.5-4.9); POTASSIUM - SERUM 4.6 mmol/L (3.5-5.1); PROTEIN - SERUM 4.7 g/dL (6.4-8.2)
[2016-08-14 04:48] LABS: CALCIUM 6.1 mg/dL (8.5-10.1); MAGNESIUM - SERUM 3.5 mg/dL (1.8-2.4)
--- NOTE | 2016-08-14 06:00 | NUR ---
SPOKE WITH DR. MATHUR TO NOTIFY OF BLEEDIN FROM CVL SITE AND DROP IN H/H. ORDERS TO CALL PRIMARY PHYSICIAN.
--- NOTE | 2016-08-14 06:15 | NUR ---
SPOKE WITH MARAL GARRETT APN, PSYCHOLOGY INTERN FOR DR. REYES, TO NOTIFY OF BLEEDING WHICH WAS CONTROLLED AND HAD NOT BEEN ACTIVE FOR SEVERAL HOURS, WELL THE LAB RESULTS OF THE H/H. DISCUSSED THE PRESSORS, IVF AND GENERAL OVERALL CONDITION OF PT AND VS. MARAL DID CONFIRM THAT A CURRENT TYPE AND CROSS HAD BEEN DONE AND STATED TO WAIT FOR DR. LANDIS TO ROUND TO MAKE DECISION OF TRANSFUSION OR NOT.
--- NOTE | 2016-08-14 07:00 | NUR ---
PT REPORT REC'D, PT CARE ASSUMED. PT SEDATED ON VENT. RIGHT IJ CVL WITH FLUIDS INFUSING, SEE FLOW SHEET. MEDINA CATHETER FREE OF KINKS WITH DARK CONCENTRATED URINE RETURN. RECTAL TUBE FREE OF KINKS WITH DIARRHEA RETURN. SCD'S, BILAT LOWER EXTREMETIES MOTTLED, BILAT PEDAL PULSES DOPPLERED. SHIFT ASSESSMENT COMPLETED, SEE FLOW SHEET. ROOM FREE OF CLUTTER, BED LOCKED IN LOWEST POSITION. WILL CONTINUE TO MONITOR PT.
--- NOTE | 2016-08-14 09:15 | NUR ---
REPOSITONED PT, PROPPED WITH PILLOWS, VSS, WILL CONTINUE TO MONITOR PT.
--- NOTE | 2016-08-14 11:00 | NUR ---
REPOSITIONED PT, PROPPED WITH PILLOWS. REASSESSMENT COMPLETED, SEE FLOW SHEET ROOM FREE OF CLUTTER, CLOSE TO NURSES STATION. WILL CONTINUE TO MONITOR PT.
--- NOTE | 2016-08-14 12:00 | NUR ---
PT AT THE BEDSIDE, ALL QUESTIONS ANSWERED, VSS, WILL CONTINUE TO MONITOR PT.
--- NOTE | 2016-08-14 15:00 | NUR ---
PT SEDATED, ON VENT, VSS. REASSESSMENT COMPLETED, SEE FLOW SHEET. ROOM FREE OF CLUTTER, CLOSE TO NURSES STATION, WILL CONTINUE TO MONITOR PT.
--- NOTE | 2016-08-14 17:43 | NUR ---
REPOSITIONED PT, PROPPED WITH PILLOWS, VSS. WILL CONTINUE TO MONITOR PT.
--- NOTE | 2016-08-14 19:19 | NUR ---
REPORT RECIEVED. ASSESSMENT COMPLETEP ER FLOW SHEET. VSS. PT SEDATED NO RESPONSE TO PAINFUL STIMULI, PROPOFOL TURNED OFF. DISORIENTED X4. EYES PERRLA 4MM BRISK. SCLERA JAUNDICED. ETT TAPED SECURED VENT A/C 40% 02 SAT 98%. REFER TO BRAD SHEET FOR COMPLETE SETTINGS. BILAT LUNGS ALL LOBES RHONCI HEARD. ABD HARD BS HYPOACTIVE X4. HEART S1S2 H4 101 SINUS TACK. X4 EXTREMETIES GENERALIZED WHEEPING EDEMA NOTED. BILAT LOWER EXTREMETIES MOTTLED. BILAT RADIAL PULSES WEAK. BILAT PEDAL PULSES FOUND VIA DOPPLER. ORAL CARE ADM. REPOSITIONED ON L SIDE. VSS. WILL CONTINUE TO MONITOR.
--- NOTE | 2016-08-14 23:33 | NUR ---
REASSESSMENT COMPLETE PER FLOW SHEET. VSS. NO NEW CHANGES WILL CONTINUE TO MONITOR.
[2016-08-15] VITALS (59 sets, daily range): BP systolic 00–120; BP diastolic 00–92
--- NOTE | 2016-08-15 00:35 | NUR ---
BODY TAKEN OUT OF ICU BY [employer]. FAMILY AT BEDSIDE. PATIENT BELONGING BAG WITH DENTURES, UNDERWEAR, SWEATPANTS AND BLACK SHOES-SISTER AND OTHER FAMILY MEMBERS AT BEDSIDE WANT US TO DISPOSE OF THESE BELONGING IN THE BAG. REPORTS HER TOOK WHAT HE WANTED AND SHE IS GOING TO BE CREMATED.
--- NOTE | 2016-08-15 03:36 | NUR ---
REASSESSMENT COMPLETE PER FLOW SHEET. NON EW FINDINGS.
--- NOTE | 2016-08-15 03:37 | NUR ---
BLOOD SUGAR 36 ON ABG. GIVEN D50. WILL REASSESS
[2016-08-15 03:47] LABS: RBC 2.34 10x6/uL (4.00-5.40); WBC 32.2 10x3/uL (4.8-10.8)
[2016-08-15 03:48] LABS: BASOPHILS 0.1 % (0.0-2.0); EOSINOPHILS 0.1 % (0-7); HEMATOCRIT 23.1 % (36.0-48.0); HEMOGLOBIN 7.4 g/dL (12-16); IMMATURE GRANULOCYTES 2.9 % (0-5); LYMPHOCYTES 8.9 % (15-50); MCH 31.6 pg (26.0-34.0); MCV 98.7 fL (80.0-100.0); MEAN PLATELET VOLUME 12.5 fL (7.4-10.4); MONOCYTES 7.2 % (2-11); NEUTROPHILS 80.8 % (40-80); PLATELET COUNT 109 10x3/uL (130-400); RDW 18.1 % (11.5-14.5)
[2016-08-15 03:59] LABS: APTT 144.4 SECONDS (22.8-39.4)
[2016-08-15 04:10] LABS: INR 3.5 (0.85-1.17); PROTIME 35.5 SECONDS (11.6-15.0)
[2016-08-15 04:14] LABS: ALBUMIN 2.8 g/dL (3.4-5.0); BILIRUBIN - TOTAL 19.24 mg/dL (0.2-1.3); CREATININE - SERUM 5.8 mg/dL (0.6-1.3); PROTEIN - SERUM 4.6 g/dL (6.4-8.2)
[2016-08-15 04:16] LABS: MAGNESIUM - SERUM 3.5 mg/dL (1.8-2.4); PHOSPHOROUS 11.3 mg/dL (2.5-4.9); POTASSIUM - SERUM 6.9 mmol/L (3.5-5.1)
[2016-08-15 04:17] LABS: ANION GAP 41.6 mmol/L (8-16); CALCIUM 5.5 mg/dL (8.5-10.1); CARBON DIOXIDE 6.3 mmol/L (21.0-32.0)
--- NOTE | 2016-08-15 04:28 | NUR ---
CRITICAL LABS RECIEVED. DR FERREIRA PAGED. YONI CALL BACK. READ BACK RESULTS. T ORDER 2 AMP BICARB TO BE ADM. OTHER LABS TO WAIT FOR DR FERREIRA ARRIVAL. NO FURTHER ORDERS AT THIS TIME.
--- NOTE | 2016-08-15 09:40 | OP ---
PATIENT NAME: NISHANT GOOD MEDICAL RECORD: [id number] :60 LOCATION:D.[facility] D.2310 ADMISSION DATE:08/08/16 SURGEON: FARAZ MATHRU MD DATE OF OPERATION: 08/13/2016 PREOPERATIVE DIAGNOSES: 1. Displaced central venous line in a patient, who requires central venous access. 2. Septicemia. 3. Liver failure. 4. Kidney failure. 5. Jaundice. POSTOPERATIVE DIAGNOSES: 1. Displaced central venous line in a patient, who requires central venous access. 2. Septicemia. 3. Liver failure. 4. Kidney failure. 5. Jaundice. PROCEDURE: Insertion of right supraclavicular subclavian triple-lumen central venous catheter. SURGEON: Faraz Mathur MD. SENIOR TEST ENGINEER: None. BLOOD LOSS: Minimal. ANESTHESIA: Local. COMPLICATIONS: None. The risks, possible complications and alternatives could not be explained to the patient. We were unable to reach the family. The patient is unable to sign herself. For that reason, an administrative consent was obtained as this is a required device in order to keep this patient alive. The entire procedure was performed in the presence of a female nurse. OPERATIVE COURSE: The patient was positioned in the Trendelenburg position. The right neck was sterilely prepped and draped. A local anesthetic was used to infiltrate the skin and subcutaneous tissues at the base of the right neck. The right subclavian vein was accessed utilizing a supraclavicular antegrade approach. A guidewire passed easily. A small skin stevie was accomplished. A vessel dilator was used to dilate a subcutaneous tract. A 16-cm triple lumen central venous catheter was inserted to the hub. It was sutured in place times 3. All lumens flushed easily and aspirated dark, nonpulsatile blood. A stat portable chest x-ray is pending. The central venous line can be used immediately. TRANSINT:[id number] Voice Confirmation ID: [id number] DOCUMENT ID: [id number] OPERATIVE REPORT [id number] NISHANT GOOD ROBERT MD at 0940 CC: [id number] DICTATION DATE: 08/13/16 1754 COURTROOM DEPUTY: 08/14/16 0006 ADM IN [place] [id number] [place] [address]
--- NOTE | 2016-08-15 10:09 | NUR ---
Nutrition Follow Up: Chart reviewed. Pt remains on vent. Per MD note pt with poor prognosis. Meds and labs noted. Noted Diprivan turned off. RD following.
[2016-08-15 13:00] LABS: CREATININE - SERUM 5.8 mg/dL (0.6-1.3)
[2016-08-15 13:05] LABS: ANION GAP 40.2 mmol/L (8-16); CALCIUM 5.7 mg/dL (8.5-10.1); CARBON DIOXIDE 8.7 mmol/L (21.0-32.0); POTASSIUM - SERUM 6.9 mmol/L (3.5-5.1)
--- NOTE | 2016-08-15 14:54 | EC ---
PATIENT:NISHANT GOOD DATE OF SERVICE: 08/08/16 SEX: F MEDICAL RECORD: [id number] DATE OF : 60 LOCATION:[facility] AGE OF PATIENT: 55 ADMISSION DATE: 08/08/16 REFERRING PHYSICIAN: INTERPRETING PHYSICIAN: LEONARD MORRIS M.D. ECHOCARDIOGRAM REPORT ECHO CHARGES 4 ECHO COMPLETE CLINICAL DIAGNOSIS: HYPOTENSION ECHOCARDIOGRAPHIC MEASUREMENTS (adult normal given) AC root (d.<3.7cm) 3.0 LV Septum d (<1.2 cm> 1.2 Valve Excursion 1.6 LV Septum (systole) 1.3 Left Atria (s.<4.0cm> 3.6 LVPW d(<1.2cm) 1.4 RV (d.<2.3cm) 4.1 LVPW (sytole) 1.7 LV diastole(<5.6CM) 3.5 MV E-F(>70mm/sec) LV systole 1.9 LVOT Diameter 1.6 MV exc.(>10mm) 1.5 Est.ejection fraction (50-75%) Pericardial Effusion N DOPPLER: LVIT A 87.0 E 77.0 LA RVSP 42 LVOT 128 AOP1/2T Asc. Ao 163 RVOT 122 RA PA 161 AV Gradient Peak 10.61 AV Mean 6.14 AV Area 1.5 MV Gradient Peak 5.60 MV Mean 1.61 MV Area COMMENTS: Settlement Worker: Rito BARNES Heat Treating Furnace Tender:Rito Morris TAPE# PACS DATE OF SERVICE: 08/11/2016 INDICATION: Hypotension. REFERRING PHYSICIAN: Dr. Morales. DESCRIPTION: Left ventricle appears normal size and function. No wall motion abnormalities are noted. Estimated ejection fraction is 55%. Mitral valve is structurally normal. There is trivial regurgitation noted. Left atrium is normal in size. The aortic valve is trileaflet. There is no stenosis or ECHOCARDIOGRAM REPORT [id number] NISHANT GOOD regurgitation seen. Right ventricle is mildly dilated. Tricuspid valve is structurally normal. There is mild regurgitation seen. Right ventricular systolic pressure is elevated at 43 mmHg. There is no pericardial effusion seen. IMPRESSION: 1. Normal left ventricular size and function, ejection fraction 60%. 2. Trivial mitral regurgitation. 3. Mild tricuspid regurgitation with elevated pulmonary pressures. TRANSINT:[id number] Voice Confirmation ID: [id number] DOCUMENT ID: [id number] LEONARD MORRIS M.D. at 1454 CC: [id number] DICTATION DATE: 08/11/16 161 NUCLEAR POWER PLANT ENGINEER: 08/12/16 0434 ADM IN [facility] [address] [id number]
[2016-08-15 16:13] LABS: AEROBE ID Final report (())
--- NOTE | 2016-08-15 17:27 | NUR ---
0715-RECIEVED PER FLOW SHEET-DR PAZ IN UNIT AND CURRENT UPDATE AND LAB RESULTS GIVEN-DR PAZ CALLED AND STRESSED SEVERELY CRITICAL-NOT STABLE FOR DIALYSIS-STRESSED TO AT WRITERS END OF PHONE-"SHE IS DYING"-RECOMMENDS [facility]/COMFORT CARE-POST PHONE CALL REMAINS FULL CODE-D50W AND 10 UNITS HUMILIN R GIVEN FOR K 6.9/EKG SHOWS TALL T WAVES=QRS COMPLEX-CA GLUCONATE-1 AMP STARTED OVER 1 HR 0800-DR BERNAL CALLED WITH UPDATE-ORDERS RECIEVED AND NOTED -BICARB 2 AMPS IVP GIVEN-BLOOD BANK NOTIFIED OF 1 UNIT PRBC SUSIE-DOPAMINE INCREASED TO 50MCG/KG DIRECTED 0820-PRBC STARTED-[id number]-- 909-PRBC COMPLETED 1030-DR BERNAL AT BEDSIDE-SPOKE WITH REGARDING GRIM STATUS-MED CODE ONLY STATUS OBTAINED-ONE AND 1/2 BICARB AMPS ADDED TO CURRENT D5W AND 1 AMP BICARB LINE AND REMAINS AT 100ML/H- 1230-RENAL NURSE PRACTITIONER AT BEDSIDE-STAT BMP ORDERED 1315-K 6.9-CA-5.5-ORDRS RECIEVD AND NOTED -D50W AND 10 HUMILIN R INSULIN IVP GIVEN WITH CACL IVP OVER 1HR 0910-COMPLETED 1030-DR BERNAL AT BEDSIDE -SPOKE WITH REGARDING-CURRENT TNBSUT-CQCQ-[id number]-CONFORT CARE/HOSPICE- AGREED TO MED CODE ONLY 1550- AND MOTHER APPROACHED NURSE AND REQUESTED REMOVAL OF LIFE SUPPORT-DR LANDIS NOTIFIED
--- NOTE | 2016-08-15 18:23 | NUR ---
1530-APPROACHED BY AND MOTHER-REQUESTED REMOVAL OF LIFE SUPPORT AND COMFORT CARE MEASURES ONLY-NOTIFIED DR LANDIS-D/C DOP-LEVOPHED VASOPRESSIN-AND BICARB IV-NOTIFIED DR BERNAL 154-RETURN CALL-ORDER RCIEVED FOR TERMINAL EXTUBATION- 1555-PT SKIN CARE DONE WITH ASSIST OF MOTHER REQUESTED BY HER 1615-RT AT BEDSIDE-MORPHINE 10MG IVP GIVEN-EXTUBATED- 1645-NOTED ASYSTOLE-FAMILY AT [facility]-DR LANDIS AND GABE NOTIFIED 1700-DR BERNAL AT BEDSIDE-[place] NOTIFIED SEEE CERIFICATE- 1800-RINGS RETURNED TO FROM [facility] AND DOCUMENTED -3 GOLD BANDS
--- NOTE | 2016-08-15 18:40 | NUR ---
1710-ESCORTED TO ER REGISTRATION AT [facility]-RETRIEVED 3 GOLD RINGS-SPOKE WITH KATHLEEN NURSING TRIM CREW SUPERVISOR AND AGREED FOR PT TO BE PLACED IN 2316-UNTIL SON COULD ARRIVE ESTIMATED TIME 2300H-PT TRANSPORTED TO 2316
--- NOTE | 2016-08-16 00:35 | NUR ---
BODY TAKEN OUT OF ICU BY [employer]. FAMILY IN UNIT AND PATIENT BELONGING BAG WITH DENTURES, SWEATPANTS AND BLACK SHOES NOTED. SISTER OF PATIENT AND OTHER FAMILY MEMBERS AT BEDSIDE STATE THEY WANT US TO DISPOSE OF THESE SAID BELONGINGS. REPORTS HER TOOK WHAT HE NEEDED AND SHE WAS TO BE CREMATED.
--- NOTE | 2016-09-12 16:20 | CN ---
PATIENT NAME:NISHANT LYON MEDICAL RECORD: [id number] : 60 LOCATION:[facility]10 ADMIT DATE: 08/08/16 ACCOUNT: [id number] CONSULTING PHYSICIAN: NOÉ TOWNSEND MD REFERRING PHYSICIAN: BARRIE REYES MD DATE OF CONSULTATION: 08/09/2016 CONSULT REQUESTING PHYSICIAN: Dr. Barrie Reyes. REASON FOR CONSULTATION: Septic shock, status post cardiac arrest, ventricular tachycardia. HISTORY OF PRESENT ILLNESS: Ms. Lyon is a 55-year-old female who was brought into the ER with acute mental status changes and hypotension. This morning, the patient has V-tach and she was shocked twice. She has elevated liver enzymes and jaundice. The patient is hypotensive and there is significant leukocytosis. REVIEW OF SYSTEMS: Mainly in the history of present illness. PAST MEDICAL HISTORY: 1. Alcoholism. 2. History of neuropathy. PAST SURGICAL HISTORY: She has a hysterectomy. ALLERGIES: No known drug allergies. PRESENT MEDICATIONS: She is on vancomycin IV, Zosyn IV. Her all other medication is reviewed. PERSONAL AND SOCIAL HISTORY: The patient is a nonsmoker. She is drinking continuously for 20 years. FAMILY HISTORY: Noncontributory. PHYSICAL EXAMINATION: VITAL SIGNS: The blood pressure is 100/83, pulse is 108, respiration is 28, temperature 93.6, SpO2 is 95% on nasal cannula and pulse ox is 95% on nasal cannula. HEENT: Conjunctiva is pale. Sclerae is icteric. NECK: Supple. No JVD. CHEST: There are bibasilar crackles. No wheezing. HEART: Rate and rhythm regular, normal sound, no murmur. ABDOMEN: Soft, distended. There is no guarding, no rigidity. RECTAL: Deferred. EXTREMITIES: No cyanosis, no clubbing. There is 1+ pedal edema. SKIN: Warm, normal turgor. CENTRAL NERVOUS SYSTEM: The patient is stupor. She is noncommunicative. CHEST RADIOGRAPH: There is a left perihilar infiltrate. CT scan of the abdomen and pelvis, there is hepatomegaly. There is contracted gallbladder. There is no intra-abdominal pathology was seen. LABORATORY DATA: CBC: The WBC is 29.1, hemoglobin 12.3, hematocrit is 36.2, CONSULT REPORT [id number] NISHANT LYON and the platelet count is 258, neutrophils are 2.2%. Chemistry: Sodium is 142, potassium is 6, chloride is 104, bicarb 18.4, BUN is 86, creatinine is 1.5. Lactic acid is 9.9. Total bilirubin 11.90. AST is 748, ALT is 243. The ammonia is 85. Troponin is 0.33. ABG: The pH is 7.31, pCO2 was 32.7, the pO2 was 280, bicarb was 16.8; this was done on 100% nonrebreather. IMPRESSION: Acute hypoxic respiratory failure, systemic inflammatory response syndrome septic shock, pneumonia left mid lung, community-acquired pneumonia; metabolic acidosis, hypoglycemia, hepatic encephalopathy, alcoholic hepatitis, alcoholism, leukocytosis, ventricular rate status post shock times 2, lactic acidosis. RECOMMENDATION: Continue vancomycin IV, Zosyn IV. Start her on D10 and 3 ampules of bicarbonate drip, IV fluid resuscitation. The patient is already got a bicarbonate and D5 for hyperkalemia. I will add Levaquin, continue Levaquin and continue Levophed. Follow up labs and chest radiograph in the morning. The patient's condition is critical and prognosis is poor. Dr. Reyes, thank you for involving me in the care of Ms. Lyon. TRANSINT:[id number] Voice Confirmation ID: [id number] DOCUMENT ID: [id number] NOÉ TOWNSEND MD at 1620 CC: BARRIE REYES MD [id number] DICTATION DATE: 08/09/161757 CREDIT ADVISOR: 08/09/16 1840 DIS IN 08/15/16 [address] [id number] [place] [id number]
== END 2016-08-15 17:02 | DRG 870 ==
LOC: D.ER 18:36 → D.ICU 21:42
PROVIDERS: Emergency Medicine; Family Medicine; Internal Medicine Nephrology; Internal Medicine Pulmonary Disease; ADMIT Family Medicine
PROC: 0T9B70Z Drainage of Bladder with Drainage Device, Via Natural or Artificial Opening (ICD-10-PCS; 2016-08-08)
PROC: 5A12012 Performance of Cardiac Output, Single, Manual (ICD-10-PCS; principal; 2016-08-09)
PROC: 0BH17EZ Insertion of Endotracheal Airway into Trachea, Via Natural or Artificial Opening (ICD-10-PCS; 2016-08-09)
PROC: 5A1955Z Respiratory Ventilation, Greater than 96 Consecutive Hours (ICD-10-PCS; 2016-08-09)
PROC: 05H533Z Insertion of Infusion Device into Right Subclavian Vein, Percutaneous Approach (ICD-10-PCS; 2016-08-13)
DX: A41.9 Sepsis, unspecified organism (principal); J69.0 Pneumonitis due to inhalation of food and vomit; R65.21 Severe sepsis with septic shock; G93.41 Metabolic encephalopathy; J96.01 Acute respiratory failure with hypoxia; K72.01 Acute and subacute hepatic failure with coma; N17.0 Acute kidney failure with tubular necrosis; K85.90 Acute pancreatitis without necrosis or infection, unspecified; I47.2 Ventricular tachycardia; D62 Acute posthemorrhagic anemia; A04.7 Enterocolitis due to Clostridium difficile; D68.9 Coagulation defect, unspecified; F10.20 Alcohol dependence, uncomplicated; E86.0 Dehydration; E87.5 Hyperkalemia; K70.10 Alcoholic hepatitis without ascites; Z78.1 Physical restraint status; D69.6 Thrombocytopenia, unspecified; E16.2 Hypoglycemia, unspecified